=== PATIENT | male | born 1955 | race Caucasian/White ===

== ENCOUNTER 2017-10-26 02:06 | Emergency (ER) | payer OTHER ==
[~2017-10-26] VITALS: Ht 180.3 cm; Wt 136.1 kg
[~2017-10-26 02:06] MED LIST: BACTRIM DS TAB1 EAC1 ORAL; KEFLEX500 MG ORAL; LISINOPRIL20 MG ORAL; METOPROLOL SUC200 MG ORAL; METOPROLOL SUCC50 MG ORAL; METOPROLOL TART50 M1 ORAL; METOPROLOL TART50 MG ORAL; PLAVIX75 MG ORAL; SIMVASTATIN20 MG ORAL; SIMVASTATIN5 MG ORAL
[2017-10-26 02:27] VITALS: BP 125/71
[2017-10-26] MEDS ORDERED: Ketorolac 60mg Inj IM ONE (02:45)
[2017-10-26] MEDS ORDERED: HYDROCODON-ACE1 EA15 ORAL (02:49)
[2017-10-26] MEDS ORDERED: IBUPROFEN600 MG ORAL (02:49)
--- NOTE | 2017-10-26 02:49 | Emergency Room Report ---
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 He has a history hypertension. He presents with chewing of right lower back pain. No trauma. 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 He felt some pain to the lower back. It was mild. As the day goes on it getting more severe. Now is an 8/10 pain. Localized the right lower back. No radiation. Worse with certain movement. Worse return to get out of the taxi. Better when he sitting down. Denies any other complaint. No fever or chills but no incontinence of bowel or urine. Allergies: Coded Allergies: No Known Allergies (Unverified , 02/27/16) Patient History Past Medical History: see triage record, old chart reviewed, HTN Past Surgical History: other Pertinent Family History: none Social History: Reports: smoking Immunizations: other Reviewed Nursing Documentation: PMH: Agreed, PSxH: Agreed Nursing Documentation-PMH Hx Cardiac Problems: Yes - Heart Attack 5-6 years ago, Cardiac stent Hx Hypertension: Yes Hx Pacemaker: No Hx Asthma: No Hx Diabetes: No Hx Cancer: No Hx Gastrointestinal Problems: No Hx Dialysis: No Hx Neurological Problems: No Hx Cerebrovascular Accident: No Hx Seizures: No Review of Systems Eye: Denies: eye pain, blurred vision ENT: Denies: ear pain, nose congestion, throat swelling Respiratory: Denies: cough, shortness of breath Cardiovascular: Denies: chest pain, palpitations Gastrointestinal: Denies: abdominal pain, diarrhea, nausea, vomiting Musculoskeletal: Reports: back pain, Denies: joint pain Skin: Denies: rash Neurological: Denies: headache, numbness Endocrine: Denies: increased thirst, increased urine Hematologic/Lymphatic: Denies: easy bruising All Other Systems: negative except mentioned in HPI Physical Exam Vital Signs Date Time Temp Pulse Resp B/P (MAP) Pulse Ox O2 Delivery O2 Flow Rate FiO2 10/26/17 02:17 98.1 15 18 125/71 95 Room Air vitals is normal Sp02 EP Interpretation: reviewed, normal General Appearance: well appearing, no apparent distress, alert, obese Head: normocephalic, atraumatic Eyes: bilateral eye PERRL, bilateral eye EOMI ENT: hearing grossly normal, normal pharynx Neck: full range of motion, supple, no meningismus Respiratory: chest non-tender, lungs clear, normal breath sounds Cardiovascular #1: regular rate, rhythm, no murmur Gastrointestinal: normal bowel sounds, non tender, no mass, no organomegaly, no bruit, non-distended Musculoskeletal: gait/station normal, normal range of motion, tender - To lower right paraspinous muscle of the lumbar spine Psychiatric: mood/affect normal Skin: warm/dry Medical Decision Making Diagnostic Impression: Primary Impression: Acute lumbar myofascial strain Qualified Codes: S39.012A - Strain of muscle, fascia and tendon of lower back , initial encounter ER Course Patient with lower back pain. This from a muscle strain. No evidence of cauda equina syndrome, spinal epidural abscess or neoplastic process. We'll discharge home. Last Vital Signs Date Time Temp Pulse Resp B/P (MAP) Pulse Ox O2 Delivery O2 Flow Rate FiO2 10/26/17 02:27 98.1 74 18 125/71 95 Room Air Status: improved Disposition: HOME, SELF-CARE Condition: Stable Scripts Ibuprofen* (MOTRIN*) 600 Mg Tablet 600 MG ORAL THREE TIMES A DAY, #30 TAB 0 Refills Prov: LUPE ALEJANDRO M.D. 10/26/17 Hydrocodone/Acetaminophen 5-325* (HYDROCODONE/ACETAMINOPHEN 5-325*) 1 Each Tablet 1 TAB ORAL Q6H Y for For Pain, #30 TAB 0 Refills Prov: LUPE ALEJANDRO M.D. 10/26/17 Patient Instructions: Back Pain, Adult Additional Instructions: Followup with your Dr. in 7 days. Return if symptom worsen. LUPE ALEJANDRO M.D. Oct 26, 2017 02:49
== END 2017-10-26 03:10 | disposition home or self-care (01) ==
LOC: EMR 03:01
DX: S39.012A Strain of muscle, fascia and tendon of lower back, initial encounter (principal); X50.1XXA Overexertion from prolonged static or awkward postures, initial encounter; Y93.9 Activity, unspecified; Y92.9 Unspecified place or not applicable; I10 Essential (primary) hypertension; I25.2 Old myocardial infarction; Z95.5 Presence of coronary angioplasty implant and graft; F17.210 Nicotine dependence, cigarettes, uncomplicated
CPT/HCPCS: 96372; 99284